=== PATIENT | female | born 1945 ===

== ENCOUNTER 2018-03-19 07:50 | Day surgery (SDC) | payer OTHER ==
[2018-03-19] MEDS ORDERED: Lactated Ringer's 500 ML IV ONE (08:57)
[2018-03-19] MEDS ORDERED: Propofol 10 mg/ml Inj (20 ML) ONE (10:44)
[2018-03-19 11:19] VITALS: BP 115/41; PULSE 56; RESP 13; TEMP 96.8; O2SAT 100
== END 2018-03-19 12:30 | disposition home or self-care (01) ==
LOC: H.ENDO 07:50
PROVIDERS: ATTEND Internal Medicine Gastroenterology
DX: Z12.11 Encounter for screening for malignant neoplasm of colon (principal); E11.9 Type 2 diabetes mellitus without complications; I10 Essential (primary) hypertension
CPT/HCPCS: 45378; 82948; J2001; J2704; J7120